=== PATIENT | female | born 1955 | race Caucasian/White ===

== ENCOUNTER 2016-12-16 00:52 | Emergency (ER) | payer OTHER ==
[~2016-12-16] VITALS: Ht 157.5 cm; Wt 77.7 kg
[2016-12-16 00:56] VITALS: BP 138/82; PULSE 81; RESP 16; O2SAT 97
--- NOTE | 2016-12-16 01:05 | ED.REPORT ---
HPI-Back Pain 40 and Over Date of Service Dec 16, 2016 ED Provider: Eladio Flowers DO Pt is a 60 y.o. female who presents to the ED c/o sudden onset waxing and waning back pain described as dull and achy, rated at an 8 at its worst, onset 1999. Pt states pain is localized between her shoulder blades. She reports associated nausea and recent cough. Pt was seen by her primary care provider 6 days ago and dx with a URI and otitis media, she was prescribed Augmentin. Nursing Notes Stated Complaint: BACK PAIN Chief Complaint: Chest Pain Nursing Notes Reviewed: Yes Allergies: Coded Allergies: No Known Allergies (Unverified , 12/16/16) General Time Seen by MD: 01:05 Chief Complaint Back pain Hx Obtained From: Patient Arrived By: Walk-in Sudden in Onset?: Yes Onset Occurred: 5 - 8 hours ago Symptom Duration: Since onset Caused by: Spontaneous/no mechanism Quality: Aching, Dull, Painful Radiation: : Does not radiate Severity: Maximum: Pain level 8 out of 10 Recent Healthcare: Recent doctor visit Similar Sx Previous: No Past Medical History Past Medical History None reported Past Surgical History Knee Smoking History Never Smoker Ambulatory Status Independent Review of Systems Respiratory: Reports: Non-productive cough GI: Reports: Nausea, Denies: Vomiting Musculoskeletal: Reports: Back pain Complete sys rev & neg: except as marked. Physical Exam Initial Vital Signs Vital Signs (First) Date Time Temp Pulse Resp B/P Pulse Ox O2 Delivery O2 Flow Rate FiO2 12/16/16 00:56 36.2 81 16 138/82 97 Room Air Initial VS: Reviewed Head / Eyes: Atraumatic, Normocephalic Extremities: Vascular intact, Neuro intact Skin: Warm, Dry, No cyanosis Psychiatric: Mood/affect normal, Behavior normal, Normal thought content General/Constitutional: Awake, Alert, Well appearing, Well developed, Well hydrated, Well nourished, Not toxic appearing Respiratory / Chest: Atraumatic, Breath sounds NL, Breath sounds = bilat, No respiratory distress, No rales, No rhonchi, No wheezing, No retractions, No stridor Cardiovascular: Heart rate NL, Regular rhythm, Heart sounds NL, No gallop, No murmurs, No rubs, Peripheral circulation NL Heart Sounds / Murmur: Positive: Murmur location... (upper right systolic border), Systolic murmur present.. (II/) Abdomen: Atraumatic, Soft, Non-tender, No guarding, No rebound, No distention, No palpable mass, No pulsatile mass Back: Atraumatic, Inspection NL, Non-tender Neurologic: Oriented X3, Speech NL Neck: Atraumatic, No adenopathy ENT: Atraumatic, Airway patent, Pharynx NL Right Ear / Mastoid: Positive: Tympanic membrane red (dull) Perulent effusion behind right TM Interpretation & Diagnostics Lab Results Interpretation Result Diagram: 12/16/1610612/16/16106 Test 12/16/16 01:07 White Blood Count 9.3th/mm3 (3.8-10.1) Red Blood Count 5.02mil/mm3 (3.90-5.20) Hemoglobin 14.4g/dL (12.0-15.6) Hematocrit 43.9% (35.0-46.0) Mean Corpuscular Volume 87.5fL (81-100) Mean Corpuscular Hemoglobin 28.7pg (27.0-35.0) Mean Corpuscular Hemoglobin Concent 32.8% (32.0-37.0) Red Cell Distribution Width 13.5% (12.3-15.4) Platelet Count 365bil/L (150-400) Neutrophils (%) (Auto) 41.9% (40-74) Lymphocytes (%) (Auto) 40.5% (14-46) Monocytes (%) (Auto) 12.9% (4-12) Eosinophils (%) (Auto) 3.6% (0-5) Basophils (%) (Auto) 0.5% (0-3) Sodium Level 142mEq/L (134-144) Potassium Level 3.9mEq/L (3.5-5.2) Chloride Level 102mEq/L (97-108) Carbon Dioxide Level 25mmol/L (18-29) Blood Urea Nitrogen 20mg/dL (8-27) Creatinine 0.59mg/dL (0.57-1.00) Estimat Glomerular Filtration Rate 148mL/min (>59) Glucose Level 118mg/dL (60-99) Calcium Level 9.2mg/dL (8.5-10.1) Magnesium Level 2.0mg/dL (1.6-2.6) Total Bilirubin 0.2mg/dL (0.0-1.2) Aspartate Amino Transf (AST/SGOT) 14U/L (0-50) Alanine Aminotransferase (ALT/SGPT) 19U/L (0-32) Alkaline Phosphatase 91U/L (25-165) Troponin T 0.010ug/L (0.0-0.011) Total Protein 7.7g/dL (6.4-8.4) Albumin 4.1g/dL (3.4-5.0) Hold [place] Top Tube Received (Received) General Lab Results Interp 1: Labs reviewed and NL ECG Interpretation Time: 01:11 Interpreted by: ED physician Normal ECG Interpretation: Normal ECG w/ rate of... (80), Normal rate, Normal sinus rhythm, No acute ischemic changes, Normal QRS, Normal axis X-Ray Chest Interpretation Chest Xray Interpretation: IMPRESSION: No acute abnormality Interpretation / Wet Read by: Wet read ED physician Re-Eval/Medical Decision Med Decision/Clinical Course 60-year-old female presents with upper back pain 3 days into an antibiotic that she has been taking for cough, sinus infection, and ear infection. The back pain can be quite severe at times up to an 8 out of 10. She denies any shortness of breath associated with it but did feel a little diaphoretic prior to arrival. Symptoms were dramatically and quickly really relieved with Toradol. Cardiac workup returned negative. Chest x-ray is normal. Patient is reassured that this is likely musculoskeletal inflammation/irritation from ongoing cough and illness. ACS has been ruled out. Source of Hx: Old records Re-Evaluation/Progress : Time of Eval: 01:55 Patient Status: Pain improved Re-Evaluation/Progress Note: Pt rechecked. Pt states pain has improved. Discussed imaging, lab results, and plan for discharge. Pt understands and agrees with plan. Counseled Regarding: Diagnosis, Lab results, Need for follow-up, When/why to return to ED Discharge & Departure Impression: Primary Impression: Upper back pain Additional Impression: Costochondritis Ruled Out: Acute coronary syndrome Disposition: Home Discharge Condition All VS Reviewed: Yes Condition: Stable Patient Instructions: Costochondritis (ED) Additional Instructions: Thank you for entrusting us with your care today. You examination included an interview, physical exam, labs, EKG, and chest x-ray. You examination showed no serious mechanism behind you back pain. Your pain was most likely due to inflammation. I recommend that you continue your Augmentin and follow-up with you primary care provider. You should take an anti-inflammatory such as ibuprofen or naproxen for your pain if it returns. Return if you experience worsening pain, shortness of breath, or any new or worsening symptoms. Follow up with your regular doctor next week. Referrals: [facility] Scribe Attestation Portions of this note were transcribed by Carleen Gorman. I, Dr. Flowers personally performed the history, physical exam and medical decision-making; I reviewed and confirmed the accuracy of the information in the transcribed note. Signed by: Henrique Gustafson, 12/16/16 and 0203. copies to: [facility] Eladio Flowers DO Dec 16, 2016 01:05 CARLEEN GORMAN Dec 16, 2016 01:21
[2016-12-16 01:18] LABS: BASOPHILS % (AUTO) 0.5 % (0-3); EOSINOPHILS % (AUTO) 3.6 % (0-5); MONOCYTES % (AUTO) 12.9 % (4-12); Mean Corpuscular Hemoglobin 28.7 pg (27.0-35.0); Mean Corpuscular Volume 87.5 fL (81-100); NEUTROPHILS % (AUTO) 41.9 % (40-74); Platelet Count 365 bil/L (150-400)
[2016-12-16 01:39] LABS: TROPONIN T 0.01 ug/L (0.0-0.011)
[2016-12-16 02:31] VITALS: BP 127/76; PULSE 73; RESP 16; O2SAT 98
--- NOTE | 2016-12-16 07:34 | DRSVH ---
PROCEDURE: X-RAY CHEST ONE VIEW, PORTABLE ([id number]) INDICATIONS: CP TECHNIQUE: One view of the chest was acquired. COMPARISON: None. FINDINGS: Surgical changes and devices: None. Lungs and pleura: No pleural effusions or pneumothorax. Lungs are clear. Mediastinum: Mediastinal contours appear normal. Heart size is normal. Bones and chest wall: No suspicious bony lesions. Overlying soft tissues appear unremarkable. IMPRESSION: No acute process. Dictated by: Hermelinda Burns M.D. on 12/16/2016 at 7:32 Approved by: Hermelinda Burns M.D. on 12/16/2016 at 7:32
== END 2016-12-16 02:31 | disposition home or self-care (01) ==
LOC: SED 00:52
DX: M54.9 Dorsalgia, unspecified (principal); M94.0 Chondrocostal junction syndrome [Tietze]; R11.0 Nausea; R05 Cough